=== PATIENT | female | born 2000 | race Caucasian/White ===

== ENCOUNTER 2021-03-25 19:32 | Emergency (ER) | payer BC ==
[~2021-03-25] VITALS: Ht 167.6 cm; Wt 59.1 kg
[2021-03-25 19:38] VITALS: BP 119/85; PULSE 98; TEMP 98.4
== END 2021-03-25 20:12 | disposition home or self-care (01) ==
LOC: COL.ER 19:32
DX: S16.1XXA Strain of muscle, fascia and tendon at neck level, initial encounter (principal); V49.40XA Driver injured in collision with unspecified motor vehicles in traffic accident, initial encounter